=== PATIENT | female | born 1950 | race Hispanic/Latino ===

== ENCOUNTER 2020-12-09 09:05 | Outpatient (CLI) | payer OTHER ==
--- NOTE | 2020-12-09 11:08 | RAD ---
CHEST 2 VIEWS: HISTORY: COVID-19 pneumonia, followup. COMPARISON: 02/09/2011. FINDINGS: Minimal patchy bilateral interstitial, alveolar, and ground-glass opacity changes without significant confluence. No cardiomegaly or pleural effusion. IMPRESSION: Abnormal patchy bilateral parenchymal changes, certainly evidence for bilateral COVID pneumonia witho ut significant confluent parenchymal process. POS: [facility]
== END 2020-12-09 09:06 | disposition home or self-care (01) ==
LOC: BICRAD 09:05
PROVIDERS: ATTEND Family Medicine
DX: U07.1 COVID-19 (principal); J12.82 Pneumonia due to coronavirus disease 2019
CPT/HCPCS: 71046

== ENCOUNTER 2021-01-04 08:43 | Outpatient (CLI) | payer OTHER ==
--- NOTE | 2021-01-04 10:02 | RAD ---
PA AND LATERAL VIEWS CHEST: HISTORY: Pneumonia followup. COMPARISON: 12/09/2020. FINDINGS: The heart size is normal. The aorta is tortuous. Mild interstitial opacities are again seen. No lo bar consolidation, pneumothoraces, or pleural effusions are identified. There are degenerative changes in the spine. IMPRESSION: Stable exam. POS: OFF
== END 2021-01-04 08:44 | disposition home or self-care (01) ==
LOC: BICRAD 08:43
PROVIDERS: ATTEND Family Medicine
DX: J18.9 Pneumonia, unspecified organism (principal)
CPT/HCPCS: 71046

== ENCOUNTER 2021-01-18 12:58 | Outpatient (CLI) | payer SELFPAY | END 2021-01-18 12:59 | disposition home or self-care (01) | LOC: BICULT 12:58 | PROVIDERS: ATTEND Internal Medicine Cardiovascular Disease | DX: E04.1 Nontoxic single thyroid nodule (principal) | CPT/HCPCS: 76536 ==

== ENCOUNTER 2021-02-17 09:42 | Outpatient (CLI) | payer OTHER | END 2021-02-17 09:43 | disposition home or self-care (01) | LOC: BICRAD 09:42 | PROVIDERS: ATTEND Family Medicine | DX: J18.9 Pneumonia, unspecified organism (principal); J84.9 Interstitial pulmonary disease, unspecified | CPT/HCPCS: 71046 ==

== ENCOUNTER 2022-12-06 15:39 | Outpatient (CLI) | payer OTHER | END 2022-12-06 15:40 | disposition home or self-care (01) | LOC: BICRAD 15:39 | PROVIDERS: ATTEND Family Medicine | DX: M25.511 Pain in right shoulder (principal) ==